=== PATIENT | male | born 1985 | race Caucasian/White ===

== ENCOUNTER 2016-10-09 07:30 | Day surgery (SDC) | payer SELFPAY ==
[2016-10-09] MEDS ORDERED: CLINDAMYCIN 900 MG PREMIX 50 ML IV ONE (08:09)
[2016-10-09] MEDS ORDERED: SODIUM CHLORIDE 0.9% 2,000 ML ONE (08:09)
--- NOTE | 2016-10-09 11:20 | US ---
Name: MEGHAN WHITE Exam: Venous ultrasound right arm Comparison: None Clinical history: Pain swelling and redness Findings:Deep veins of the right arm were evaluated with ultrasound using real-time, color flow doppler and doppler analysis. Visualized jugular and subclavian veins show normal blood flow. Cephalic, brachial and basilic veins show normal compressibility. There is no echogenic intraluminal filling defect. Blood flow responds appropriately to respiratory variation and augmentation on color doppler and spectral analysis. At the posterior margin of the upper arm, underlying erythema and edematous tissue, there is a 7.9 cm fluid collection with its long axis parallel to the skin. Internal debris is identified. There is a small amount of blood flow surrounding this bilobed thick walled collection. Differential considerations include abscess and possibly recent trauma.. Impression: 1. No ultrasound evidence for DVT right arm 2. 7.9 cm bilobed complicated fluid collection in the subcutaneous fat of the posterior right upper arm. Abscess is favored over trauma at this time. Note: The above report was uploaded to [facility]'s electronic medical records system at 1116 hours.
[2016-10-09] MEDS ORDERED: BLISTEX LIPSTICK 1 EACH TP PRN (12:55)
[2016-10-09] MEDS ORDERED: ACETAMINOPHEN 325 MG TABLET PO PRN ×2 (12:55→21:35)
[2016-10-09] MEDS ORDERED: MENTHOL/CETYLPYRD 1 EACH LOZENGE PO PRN (12:55)
[2016-10-09] MEDS ORDERED: LEVOFLOXACIN 750 MG TABLET PO SCH (13:02)
[2016-10-09] MEDS ORDERED: VANCOMYCIN HCL 2 G in SODIUM CHLORIDE 0.9% 500 ML IV SCH ×2 (13:30)
[2016-10-09 13:31] VITALS: BMI 34.0
[2016-10-09 13:45] LABS: ALB/GLOB RATIO 0.3 (>1.0); ALBUMIN 3.2 gm/dL (3.5-5.7); ALT/SGPT 116 U/L (7-52); GLOMERULAR FILTRATION RATE 133 mL/min (60-116)
--- NOTE | 2016-10-09 14:20 | CONS ---
BETHANY, [id number] DATE OF CONSULTATION: October 09, 2016 HISTORY OF PRESENT ILLNESS: I saw Mr. Lyn in the emergency department. He is a 30-year-old heroin addict who had approximately five days ago injected illicit drugs into his upper arms bilaterally. He has a small approximately 2 x 2 cm abscess on the triceps region of the left upper arm, and he has a large approximately 12 x 12 cm fluctuant mass on the posterior portion of the right upper arm in the region of the triceps mid humeral shaft. He underwent an ultrasound in the emergency department that demonstrates a fluctuant fluid collection. The area is erythematous with induration and is warm to the touch. PAST MEDICAL HISTORY: 1. Heroin addiction with IV drug use. 2. He has no other additional medical problems. ALLERGIES: NONE KNOWN. DID ASK. PHYSICAL EXAMINATION: On physical exam, Mr. Lyn again has a fluctuant abscess in the right upper region of the triceps on the posterior portion of the upper arm. LABORATORIES: Current labs are pending. Microbiology is also pending. ASSESSMENT AND PLAN: I had a long discussion with Mr. Lyn. Unfortunately, he has minimal IV access so emergency room physician, Dr. Lal, is placing interosseous catheter for IV fluid resuscitation in preparation for intraoperative abscess drainage. I reviewed the risks and benefits of abscess drainage. I discussed the possibility of nerve injury as well as ongoing sepsis and the requirement for repeat operations. I did discuss alternatives and benefits with surgery versus antibiotic routine. Mr. Lyn is interested in proceeding with an exam under anesthesia and incision and drainage of the abscess cavity on the posterior portion of the right arm. After the risks and benefits were fully discussed, informed consent was obtained. We will plan for an operative drainage and admission to hospital for antibiotic treatment of his heroin shooter's abscess.
[2016-10-09] MEDS ORDERED: LORAZEPAM 2 MG/ML 1ML SDV IV PRN (15:10)
[2016-10-09] MEDS ORDERED: LIDOCAINE 1% (PRES FREE) 5 ML VIAL PF PRN (15:10)
[2016-10-09] MEDS ORDERED: Sodium Chloride 0.9% 40 ML ONE (16:32)
--- NOTE | 2016-10-09 19:12 | RAD ---
Name: MEGHAN WHITE Exam: Chest Comparison: None Clinical history: PICC line placement Findings: Single view of the chest is submitted. Heart, mediastinum and hilar structures are normal. Lungs are clear. There is an old left fifth rib fracture. Left approach PICC line has its tip projected at the caval atrial junction. Impression: 1. Left approach PICC line with its tip projected at the caval atrial junction. Note: Findings were discussed with Misa from infusion services at 1909 hours
[2016-10-09 19:40] LABS: ABSOLUTE NEUTROPHIL COUNT 13.1 K/mm3 (1.8-7.7); BASO % 0.2 % (0.2-1.0); EOS # 0.1 (0.0-0.5); EOS % 0.4 % (0.9-2.9); HEMATOCRIT 40.9 % (32.0-52.0); HEMOGLOBIN 13.6 gm/l (14.0-18.0); IMM NEUT # 0.1 K/mm3 (0-0.2); IMM NEUT% 0.4 % (0-1); LYMPH % 11.8 % (15-45); MEAN CELL VOLUME 82.5 fl (80.0-94.0); MEAN CORPUSCULAR HEMOGLOBIN 27.4 pg (27.0-31.0); MEAN CORPUSCULAR HGB CONC 33.3 g/dl (33.0-37.0); MEAN PLATELET VOLUME 9.1 fl (7.4-10.4); MONO # 1.4 (0.0-0.8); MONO % 8.2 % (4-12); PLATELET COUNT 260 K/mm3 (130-400); RED CELL DISTRIBUTION WIDTH 14.7 % (11.5-14.5)
[2016-10-09 20:01] LABS: INR 0.95
[2016-10-09] MEDS ORDERED: PROPOFOL 0 ML IV ONE (20:01)
[2016-10-09] MEDS ORDERED: ONDANSETRON 4 MG/2ML 2 ML VIAL ONE (20:01)
[2016-10-09] MEDS ORDERED: DEXAMETHASONE SOD PHOS 4 MG/1 ML VIAL ONE (20:01)
[2016-10-09] MEDS ORDERED: MIDAZOLAM HCL 1 MG/ML 2ML VIAL ONE (20:01)
[2016-10-09] MEDS ORDERED: FENTANYL 100 MCG/2 ML VIAL ONE ×2 (20:01→20:52)
[2016-10-09 20:03] LABS: CALCIUM 10.5 mg/dL (8.6-10.3); MAGNESIUM 1.9 mg/dL (1.9-2.7)
[2016-10-09] MEDS: SODIUM CHLORIDE 0.9% 1,000 ML IV SCH ×2 (20:03→20:43)
[2016-10-09] MEDS ORDERED: PROPOFOL 20 ML IV ONE ×4 (20:48→21:00)
[2016-10-09] MEDS ORDERED: PUMP TUBING ONE (20:50)
[2016-10-09] MEDS ORDERED: HYDROMORPHONE HCL 2 MG/ML SYRINGE ONE (21:02)
[2016-10-09] MEDS ORDERED: NALOXONE HCL 0.4 MG/ML VIAL IV PRN (21:05)
[2016-10-09] MEDS ORDERED: FENTANYL 100 MCG/2 ML VIAL IV PRN (21:05)
[2016-10-09] MEDS ORDERED: ATROPINE SULFATE 0.4 MG/1 ML VIAL IV PRN (21:05)
[2016-10-09] MEDS ORDERED: PROMETHAZINE HCL 25 MG/ML VIAL IM PRN (21:05)
[2016-10-09] MEDS ORDERED: HYDROMORPHONE HCL 1 MG/ML SYRINGE IV PRN (21:05)
[2016-10-09] MEDS ORDERED: ONDANSETRON 4 MG/2ML 2 ML VIAL IV PRN (21:05)
[2016-10-09] MEDS ORDERED: MEPERIDINE 25 MG/ML SYRINGE IV PRN (21:05)
[2016-10-09] MEDS ORDERED: LACTATED RINGERS 1,000 ML IV SCH (21:15)
[2016-10-09] MEDS ORDERED: KETOROLAC TROMETHAMINE 30 MG/ML 1 ML VIAL IV PRN (21:35)
[2016-10-09] MEDS ORDERED: OXYCODONE HCL 5 MG TABLET PO PRN (21:35)
[2016-10-09] MEDS ORDERED: D5 1/2NS with 20 mEq KCL 1,000 ML IV SCH (21:45)
[2016-10-09] MEDS: HYDROMORPHONE HCL 0.5 MG/0.5 ML SYRINGE IV PRN ×3 (22:00→23:07)
[2016-10-09] MEDS ORDERED: PIPERACILLIN-TAZO PREMIX BAG 3.375 G in Premix (D5W) 50 ml 1 EACH IV SCH (22:00)
[2016-10-09] MEDS ORDERED: Heparin Sodium 5000 unit/0.5ml syringe SUB-Q SCH (22:30)
[2016-10-09 23:56] VITALS: BP 118/68
[2016-10-10] MEDS ORDERED: ONDANSETRON 4 MG/2ML 2 ML VIAL IV PRN (02:30)
--- NOTE | 2016-10-10 06:31 | OP ---
MEGHAN SIMS [id number] DATE OF OPERATION: October 09, 2016 SURGEON: Noam Dozier M.D. PREOPERATIVE DIAGNOSIS: A 10 x 10 shooter's abscess on posterior portion of right upper extremity in the region of the triceps. POST OPERATIVE DIAGNOSIS: A 10 x 10 shooter's abscess on posterior portion of right upper extremity in the region of the triceps. OPERATION PERFORMED: 1. Exam under anesthesia. 2. Incision and drainage of shooter's abscess. COMPLICATIONS: None. ESTIMATED BLOOD LOSS: Approximately 50 mL. CLINICAL VIGNETTE: Mr. Sims is a 30-year-old male known heroin IV drug user. He presents with a five-day history of swelling in his right upper extremity with an abscess on the posterior portion of his right upper arm with induration and fluctuance. He was seen in the emergency department and ultrasound was performed that demonstrated an abscess cavity. Patient was admitted to the hospital. He had poor IV access and PICC line was inserted, and he was offered an incision and drainage. The risks and benefits of surgery were explained to Mr. Sims including need for reoperation, ongoing infection and possible nerve injury related to the incision. Informed consent was obtained and signed. PROCEDURE: Mr. Sims was brought to the operating room and prepped and draped, his right arm as a free drape. He was given IV antibiotics and general anesthetic. An 18 gauge needle was placed in the posterior portion of the arm into the abscess. Once purulent material was identified, the scalpel was used to cut down. Approximately a 2 cm incision was made on the back of the arm in the region of the abscess. The abscess immediately drainage approximately 500 mL of purulent material. A snap was used for gentle dissection in the cavity to break down any loculations and the cavity was irrigated with warm saline. Once the fluid was clear, I could visualize inside the cavity and the abscess appeared to track into the tricep muscle. Again I broke down loculations using instruments. Once this was completed again, I copiously irrigated the cavity with warm saline. A small amount of cautery was used to control hemorrhage at the skin incision. The wound was then packed with Iodoform gauze and bandaged with gauze and all-in-one dressing. Mr. Sims was stable throughout the procedure. He had no complications identified intraoperatively and was transported to recovery in stable condition.
[2016-10-10] MEDS ORDERED: FAMOTIDINE 10 MG/ML 2ML VIAL IV SCH (09:00)
[2016-10-10] MEDS ORDERED: VANCOMYCIN HCL 2 G in SODIUM CHLORIDE 0.9% 500 ML IV SCH (09:00)
[2016-10-10] MEDS ORDERED: Heparin Sodium 5000 unit/0.5ml syringe SUB-Q SCH (10:57)
[2016-10-10] MEDS ORDERED: HYDROMORPHONE HCL 1 MG/ML SYRINGE IV PRN (21:38)
== END 2016-10-10 00:50 | disposition left against medical advice (07) ==
LOC: ED 07:30 → ICU 12:53 → ED 10-10 00:50
PROVIDERS: ATTEND Surgery
PROC: 0H9BXZZ Drainage of Right Upper Arm Skin, External Approach (ICD-10-PCS; principal; 2016-10-10)
DX: L02.413 Cutaneous abscess of right upper limb (principal); L02.414 Cutaneous abscess of left upper limb; B96.89 Other specified bacterial agents as the cause of diseases classified elsewhere; F11.10 Opioid abuse, uncomplicated
CPT/HCPCS: 10060; 83605; 85025; 87040; 87070; 80048; 80053; 87186; 83735; 84100; 85610; 99284; 96372 ×2; 96374; 96375; 93971; 99285; J1170 ×3; J3010 ×2; J1644; J1100; J1885; J2250; J2405; J2543; J7030